=== PATIENT | female | born 1975 | race Caucasian/White ===

== ENCOUNTER 2019-07-16 22:28 | Emergency (ER) | payer BC ==
[2019-07-16 22:38] VITALS: BP 130/76; PULSE 74; TEMP 98; BMI 24.2
[2019-07-16] MEDS ORDERED: SODIUM CHLORIDE 0.9% 500 ML INFUS.BAG IV ONE (23:35)
[2019-07-16] MEDS ORDERED: FAMOTIDINE 20 MG/50 ML IVPB 20 MG/50 ML MG IVPB ONE ×2 (23:35→23:46)
[2019-07-16] MEDS ORDERED: ACETAMINOPHEN 1000 MG/100 ML VIAL (NON FORMULARY) IVPB ONE (23:35)
[2019-07-16] MEDS ORDERED: ONDANSETRON 4 MG/2 ML VIAL IVPUSH ONE (23:35)
--- NOTE | 2019-07-16 23:38 | PDOC ---
History of Present Illness - General Chief Complaint: Pain Stated Complaint: ABD/BACK PAIN - History of Present Illness Initial Comments: The pt is a 43F w/ a distant history of nephrolithiasis who presents for evaluation of two days of left flank pain. The pain is achy, intermittent, radiated to her abdomen, and was mildly alleviated by Alieve. She reports associated nausea, NBNB vomiting x1 yesterday, and hematuria. She endorses subjective fevers. She denies dysuria, diarrhea, blood in her stool. 07/16/19 23:33 Past History - Past Medical History Allergies/Adverse Reactions: Allergies Allergy/AdvReac Type Severity Reaction Status Date / Time No Known Drug Allergies Allergy Verified 07/16/19 22:38 Home Medications: Ambulatory Orders NK [No Known Home Medication] 07/16/19 Asthma: No Cancer: No Cardiac Disorders: No COPD: No Diabetes: No HTN: No Seizures: No Thyroid Disease: No - Psycho Social/Smoking Cessation Hx Smoking Status: No Smoking History: Never smoked Have you smoked in the past 12 months: No Number of Cigarettes Smoked Daily: 0 Hx Alcohol Use: No Drug/Substance Use Hx: No Hx Substance Use Treatment: No Review of Systems - Review of Systems Able to Perform ROS?: Yes Comments:: GENERAL/CONSTITUTIONAL: +subjective fevers; No chills. No weakness HEAD, EYES, EARS, NOSE AND THROAT: No change in vision. No change in hearing. No sore throat CARDIOVASCULAR: No chest pain or shortness of breath RESPIRATORY: Denies cough, hemoptysis GASTROINTESTINAL: No nausea, vomiting, diarrhea or constipation GENITOURINARY: per HPI MUSCULOSKELETAL: No joint or muscle swelling or pain. No neck pain SKIN: No rash NEUROLOGIC: No headache, vertigo, loss of consciousness, or change in strength/ sensation ENDOCRINE: No increased thirst. No abnormal weight change HEMATOLOGIC/LYMPHATIC: No anemia, easy bleeding, or history of blood clots ALLERGIC/IMMUNOLOGIC: No hives or skin allergy 07/16/19 23:35 Is the patient limited Yoruba proficient: No *Physical Exam - Vital Signs Last Vital Signs Temp Pulse Resp BP Pulse Ox 98 F 74 18 130/76 99 07/16/19 22:35 07/16/19 22:35 07/16/19 22:35 07/16/19 22:35 07/16/19 22:35 - Physical Exam GENERAL: Awake, alert, and oriented to person/place/time, in no acute distress HEAD: No signs of trauma, normocephalic, atraumatic EYES: PERRLA, EOMI, sclera anicteric, conjunctiva clear ENT: Hearing grossly normal, nares patent, oropharynx clear without exudates. Moist mucosa LUNGS: No distress, speaks in full sentences, clear to auscultation bilaterally HEART: Regular rate and rhythm, normal S1 and S2, no murmurs appreciated, peripheral pulses normal and equal bilaterally ABDOMEN: Soft, mild epigastric, left flank, suprapubic TTP w/o rebound or guarding, normoactive bowel sounds EXTREMITIES: Normal inspection, Normal range of motion, no edema. No clubbing or cyanosis NEUROLOGICAL: Cranial nerves II through XII grossly intact. Normal speech, normal gait, no focal sensorimotor deficits SKIN: Warm, Dry 07/16/19 23:37 ED Treatment Course - LABORATORY CBC & Chemistry Diagram: 07/16/19 00:01 07/16/19 00:01 Medical Decision Making - Medical Decision Making The pt is a 43F w/ a distant history of nephrolithiasis who presents for evaluation of two days of left flank pain with hematuria Consider nephrolithiasis, UTI/pyelo, not likely gastroenteritis/enteritis, not likely AAA/dissection ED Course CMP, CBC, Lipase, UA, UCx, Upreg ECG CT spiral to evaluate for stone Ofirmev, Pepcid, IVF, Zofran 07/16/19 23:38 UA w/o hematuria or evidence of UTI Labs overall unremarkable CT spiral w/o ureteral obstruction, possible evidence of vasculitis versus inflammed lymph node noted CT results discussed w/ pt Pt feels improved at this time Plan for D/C w/ PCP and Rheum f/u Discharge instructions and return precautions given Patient in agreement and verbalized understanding Dispo: Home 07/17/19 03:47 Discharge - Discharge Information Problems reviewed: Yes Clinical Impression/Diagnosis: Left flank pain Condition: Stable Disposition: HOME - Admission No - Follow up/Referral Referrals: Gilberto Metzger MD [Non Staff, Medical] - David Daniels MD [Non Staff, Medical] - Nadeem Coker MD [Staff Physician] - Selina Adrian MD [Non Staff, Medical] - [facility] [place] [Provider Group] - Patient Discharge Instructions Patient Printed Discharge Instructions: DI for Abdominal Pain-Adult, DI for Vasculitis Additional Instructions: You were seen in the Emergency Department for evaluation of flank pain/ abdominal pain. Your labs were unremarkable. Your CT scan was notable to bilateral kidney stones without obstruction. It also noted: There is inflammation or an inflammatory mass surrounding the celiac and SMA origins just anterior to the difficult to characterize on a noncontrast scan. Uncertain if this represents inflammation related to the celiac/SMA (such as vasculitis) or an enlarged abnormal lymph node. A referral to [facility] was also provided. Return to the Emergency Department if you develop fevers, chest pain, trouble breathing, worsening symptoms, or any new/concerning symptoms. - Post Discharge Activity Work/Back to School Note: Back to Work
[2019-07-16] MEDS ORDERED: ACETAMINOPHEN INJECTION 100 ML IVPB ONE (23:45)
[2019-07-16] MEDS ORDERED: ONDANSETRON 4 MG/2 ML VIAL ONE (23:46)
[2019-07-17 00:21] LABS: BASO % 0.6 % (0-2.0); EOS % 0.4 % (0-4.5); HEMATOCRIT 36.5 % (32.4-45.2); HEMOGLOBIN 12.6 GM/dL (10.7-15.3); MCHC 34.5 g/dl (32.0-36.0); MEAN CELL VOLUME 86.9 fl (80-96); MEAN PLT VOLUME 8.6 fl (7.5-11.1); PLATELET COUNT 202 K/MM3 (134-434); RBC 4.19 M/mm3 (3.60-5.2); RDW 13.2 % (11.6-15.6); WHITE BLOOD COUNT 4.9 K/mm3 (4.0-10.0)
[2019-07-17 01:43] LABS: HYALINE CASTS 0 /lpf (0-8); PH,URINE 8.5 (5.0-8.0); URINE APPEARANCE Clear; URINE BACTERIA 59.9 /hpf (NEGATIVE); URINE BILIRUBIN Negative (NEGATIVE); URINE COLOR Yellow; URINE GLUCOSE (UA) Negative (NEGATIVE); URINE KETONE Negative (NEGATIVE); URINE LEUK ESTERASE Negative (NEGATIVE); URINE NITRITE Negative (NEGATIVE); URINE PROTEIN Negative (NEGATIVE); URINE RBC 2 /hpf (0-4); URINE UROBILINOGEN 0.2 mg/dL (0.2-1.0); URINE WBC 1 /hpf (0-5)
--- NOTE | 2019-07-17 02:07 | PDOC ---
Documentation entered by Chad Dickey SCRIBE, acting as scribe for Herminio Kruger DO. Herminio Kruger DO: This documentation has been prepared by the Noble escoto Daniel, SCRIBE, under my direction and personally reviewed by me in its entirety. I confirm that the documentation accurately reflects all work, treatment, procedures, and medical decision making performed by me. Attending Attestation - Resident Resident Name: Tito Jacob - ED Attending Attestation I have performed the following: I have examined & evaluated the patient, The case was reviewed & discussed with the resident, I agree w/resident's findings & plan, Exceptions are as noted - HPI HPI: 07/17/19 00:38 Patient is a 43 year old female here for left flank pain that began 2 days ago. She describes it as intermittent, achey, and radiates to her epigastric area and chest wall. She notes associated nausea, 1 episode of vomiting yesterday, and hematuria today with no dysuria. - Physicial Exam PE: 07/17/19 00:38 GENERAL: Awake, alert, and fully oriented, in no acute distress HEAD: No signs of trauma EYES: PERRLA, EOMI, sclera anicteric, conjunctiva clear ENT: Auricles normal inspection, hearing grossly normal, nares patent, oropharynx clear without exudates. Moist mucosa NECK: Normal ROM, supple, no lymphadenopathy, JVD, or masses LUNGS: Breath sounds equal, clear to auscultation bilaterally. No wheezes, and no crackles HEART: Regular rate and rhythm, normal S1 and S2, no murmurs, rubs or gallops ABDOMEN: +left flank and epigastric tenderness. No CVA tenderness. Soft, normoactive bowel sounds. No guarding, no rebound. No masses EXTREMITIES: Normal range of motion, no edema. No clubbing or cyanosis. No cords, erythema, or tenderness NEUROLOGICAL: Cranial nerves II through XII grossly intact. Normal speech, normal gait SKIN: Warm, Dry, normal turgor, no rashes or lesions noted. - Medical Decision Making 07/17/19 00:38 43 year old female here with left flank pain, will evaluate for obstructed uropathy vs renal colic vs UTI. Will give pain control and fluids and obtain spiral CT, UA, and basic labs. EKG Normal Sinus 60, normal axis and intervals, no acute ischemia 0021
[2019-07-17 02:27] LABS: ALBUMIN 3.9 g/dl (3.4-5.0); BILIRUBIN,TOTAL 0.5 mg/dL (0.2-1); BLOOD UREA NITROGEN 8.8 mg/dL (7-18); CALCIUM 9.1 mg/dL (8.5-10.1); CREATININE 0.7 mg/dL (0.55-1.3); POTASSIUM 4.5 mmol/L (3.5-5.1); TOT PROT 7.7 g/dl (6.4-8.2)
[2019-07-17] MEDS ORDERED: KETOROLAC TROMETHAMINE 15 MG/ML VIAL IVPUSH ONE (02:38)
[2019-07-17] MEDS ORDERED: KETOROLAC TROMETHAMINE 15 MG/ML VIAL ONE (02:51)
--- NOTE | 2019-07-17 10:33 | EKG ---
Test Reason : Blood Pressure : / mmHG Vent. Rate : 060 BPM Atrial Rate : 060 BPM P-R Int : 180 ms QRS Dur : 084 ms QT Int : 444 ms P-R-T Axes : 064 -12 061 degrees QTc Int : 444 ms NORMAL SINUS RHYTHM NORMAL ECG WHEN COMPARED WITH ECG OF 12-JUL-2009 13:50, NO SIGNIFICANT CHANGE WAS FOUND Confirmed by LYNDA ORNELAS MD ([id number]) on 07/17/2019 10:33:11 AM Referred By: Confirmed By:LYNDA ORNELAS MD
== END 2019-07-17 04:00 | disposition home or self-care (01) ==
LOC: JER 22:28
DX: N20.0 Calculus of kidney (principal); Z87.442 Personal history of urinary calculi
CPT/HCPCS: 36415; 74176-TC; 80053; 81003; 83690; 84703; 85025; 87086; 93005; 93010; 99285-25; J0131